=== PATIENT | female | born 1985 | race Two or more races ===

== ENCOUNTER → 2020-10-22 | Outpatient (CLI) | payer MEDICAID, OTHER | END | disposition home or self-care (01) | LOC: CFH 13:40 | DX: R10.11 Right upper quadrant pain (principal) | CPT/HCPCS: 76857 ==

== ENCOUNTER → 2020-11-24 | Outpatient (CLI) | payer MEDICAID ==
[~2020-11-24] MED LIST: OMNIPAQUE 350 MG/ML, 100ML BOTTLE ONE
== END | disposition home or self-care (01) ==
LOC: CFH 13:48
DX: R10.11 Right upper quadrant pain (principal)
CPT/HCPCS: 74177; Q9967